=== PATIENT | female | born 1950 | race Caucasian/White ===

== ENCOUNTER 2021-05-18 21:29 | Emergency (ER) | payer BC ==
[~2021-05-18] VITALS: Ht 167.6 cm; Wt 65.8 kg
[2021-05-18] MEDS ORDERED: REGLAN10 MG PO (21:43)
[2021-05-18] MEDS ORDERED: CHILDREN'S ASPI81 M1 PO (21:44)
== END 2021-05-18 23:20 | disposition home or self-care (01) ==
LOC: ED 21:29
PROC: 093K7ZZ Control Bleeding in Nasal Mucosa and Soft Tissue, Via Natural or Artificial Opening (ICD-10-PCS; principal; 2021-05-18)
DX: R04.0 Epistaxis (principal); I10 Essential (primary) hypertension; Z85.3 Personal history of malignant neoplasm of breast; Z79.899 Other long term (current) drug therapy; Z79.82 Long term (current) use of aspirin
CPT/HCPCS: 30901; 99283-25